=== PATIENT | male | born 1965 | race Caucasian/White ===

== ENCOUNTER 2020-05-12 11:29 | Outpatient (CLI) | payer BC, SELFPAY ==
--- NOTE | 2020-05-12 12:24 | ECG_ITS ---
[facility] Test Date: 2020-05-12 Pat Name: Jessie Sherwood Department: Room: Gender: Male [employer]: : 1965 Requested By: Jason Coello Order Number: [id number] Hartman MD: Interpretive Statements Intraprocedure shortess of breath; Symptoms resoled by discharge; Lung unchanged pre/post procedure [email or web address] NAME OF STUDY: EXERCISE SESTAMIBI STRESS TEST INDICATION: EIPGASTRIC ABD PAIN/HLD/FAMILY H/O CAD, EXERCISE DATA: The patient was exercised by Kenny protocol. Baseline heart rate was 56 beats per minute. Baseline blood pressure was 153/93 millimeters of mercury. Target heart rate was 164 beats per minute. Maximum heart rate achieved was 162, which was 98% of the target heart rate. Maximum blood pressure was 190/93 millimeters of mercury. Total exercise time was 7 minutes 1 second. Maximum METs achieved was 10.2, maximum VO2 was 35.7. The reason for ending the test was maximum effort achieved. The patient complained of shortness of breath during the stress test, which then resolved at the end of the test. ELECTROCARDIOGRAM: BASELINE: Sinus bradycardia, normal axis, no significant ST-T changes at the baseline noted. EXERCISE: At the peak exercise level, no significant ST-T changes suggestive of ischemia noted. RECOVERY: During the recovery period, heart rate dropped appropriately. No significant ST-T changes in the recovery suggestive of ischemia noted. CONCLUSION: 1. Exercise capacity fair. 2. Heart rate response was appropriate. 3. Blood pressure response was hypertensive. 4. Symptoms not suggestive of ischemia. 5. Electrocardiogram portion of the stress test was not suggestive of ischemia. 6. Nuclear scan will be documented separately. Electronically Signed On 05-13-2020 18:09:05 CDT by DALLAS SANDY
--- NOTE | 2020-05-12 12:25 | NMCV_ITS ---
NM pedro perf SPECT r/s* [id number] Jessie Sherwood Age: 54 Gender: M : 1965 Exam Date: 05/12/2020 12:33 Ordering Phys: Jason Coello PA-C XX Technologist: HARJIT Al Exam Location: [facility] Indications: Abd pain, hyperlipidemia STRESS TEST Please see separate stress test report in [facility] for full findings IMAGE PROTOCOL Rest/Stress 1 Exercise Day Radiopharmaceutical Dose (mCi) Administration Site Administered by Rest: Tc-99m 10.6 IV HARJIT Mcfarlane Sestamibi Stress:Tc-99m 33.0 IV HARJIT Al Sestamiramakrishna Rest: 12-May-2020 60 Discovery 630 Stress: 12-May-2020 15 Discovery 630 Radiopharmaceutical was injected at 85 % maximum heart rate. Images obtained in supine and prone position. SPECT RESULTS Technical Quality: Excellent Raw Data Analysis: Normal Image Corrections: No attenuation or motion correction applied Summed Stress Score: 2 Summed Rest Score: 3 Summed Difference Score: 0 PERFUSION FINDINGS Medium-sized area of basal to distal anterior wall perfusion defect noted on the rest images which improved significantly over stress images suggestive of artifact. Small area of apical perfusion defect noted on rest images which improved significantly over stress images suggestive of artifact. Medium-sized area of fixed perfusion defect noted in basal distal inferior wall on both rest and stress images which could be artifact versus scarring. Please note that patient was not able to perform the prone images therefore cannot rule out artifact. FUNCTIONAL RESULTS (calculated via Gated SPECT) Stress Image LV EF (%): 58 Stress EDV (mL):90 TID: 0.9 Stress ESV (mL):38 Rest Image LV EF (%): 59 FUNCTIONAL FINDINGS: There is normal left ventricular systolic function. IMPRESSIONS Perfusion scan is negative for ischemia. EKG segment will be documented separately. Melina Walsh MD (Electronically Signed) Final Date: 12 May 2020 18:18 S
[2020-05-12 12:40] VITALS: BMI 23.1
[2020-05-12 13:53] VITALS: BP 171/66; PULSE 90
== END 2020-05-12 11:30 | disposition home or self-care (01) ==
LOC: RAD 11:33 → CDL 12:37
PROVIDERS: PCP Physician Assistant Medical; Visit Provider Physician Assistant Medical
DX: R10.9 Unspecified abdominal pain (principal); E78.5 Hyperlipidemia, unspecified
CPT/HCPCS: 78452; 93017; A9500

== ENCOUNTER → 2022-09-01 12:00 | Outpatient (BNVA) | payer BC, SELFPAY | PROVIDERS: PCP Family Medicine; Visit Provider Family Medicine | DX: Z00.00 Encounter for general adult medical examination without abnormal findings (principal); R35.1 Nocturia | CPT/HCPCS: 80053; 80061; 83036; 84153; 85025 ==

== ENCOUNTER → 2023-01-26 10:20 | Outpatient (BNVA) | payer BC, SELFPAY | PROVIDERS: PCP Family Medicine; Visit Provider Family Medicine | DX: R53.83 Other fatigue (principal); M54.6 Pain in thoracic spine; G89.29 Other chronic pain | CPT/HCPCS: 84403; 85025 ==

== ENCOUNTER → 2023-10-24 12:01 | Outpatient (BNVA) | payer BC, SELFPAY | PROVIDERS: PCP Family Medicine; Visit Provider Family Medicine | DX: Z00.00 Encounter for general adult medical examination without abnormal findings (principal); R35.1 Nocturia | CPT/HCPCS: 80053; 80061; 83036; 84153; 85025 ==